=== PATIENT | male | born 1950 | race Caucasian/White ===

== ENCOUNTER 2022-06-19 13:15 | Inpatient (IN) | payer MEDICARE, BC ==
[~2022-06-19] VITALS: Ht 182.9 cm; Wt 83.9 kg
[~2022-06-19 13:15] MED LIST: AMIO400T5 PO; ASPI81TA31 PO; CALC0.253 PO; CALC667C6 PO; CLOP75TA15 PO; EZET10TA15 PO; HYDR-507 PO; LACT10SO69 PO; LISI10TA29 PO; OMEP20CA15 PO; ONDA4TAB5 PO; PRAV10TA40 PO; RENAVITE PO; SEVE800T8 PO; ZOLP10TA2 PO
[2022-06-19] MEDS ORDERED: VANCOMYCIN IV 1,000 MG in IV DEXTROSE 5% 250 ML IV ONE (13:30)
[2022-06-19] MEDS ORDERED: CEFEPIME HCL 1 G in IV DEXTROSE 5% 50 ML IV ONE (13:30)
[2022-06-19 14:02] LABS: HEMATOCRIT 33.9 % (36.7-47.1); MEAN CORPUSCULAR HEMOGLOBIN 27.1 uug (23.8-33.4); MEAN CORPUSCULAR VOLUME 84.3 fL (73.0-96.2); PLATELET COUNT (AUTO) 203 K/uL (152-348)
[2022-06-19] MEDS ORDERED: MEROPENEM 1GM/NS 100ML IVPB **ER PYXIS ONLY IV ONE (14:08)
[2022-06-19] MEDS ORDERED: VANCOMYCIN HCL 500 MG VIAL ONE (14:08)
[2022-06-19] MEDS ORDERED: VANCOMYCIN 1000 MG VIAL ONE (14:09)
[2022-06-19] MEDS ORDERED: CEFEPIME HCL 1 G VIAL ONE (14:13)
[2022-06-19 14:19] LABS: ALANINE AMINOTRANSFERASE 199 U/L (16-63); ALKALINE PHOSPHATASE 160 U/L (50-136); ASPARTATE AMINOTRANSFERASE 128 U/L (15-37); BILIRUBIN,DIRECT 0.6 mg/dL (0.0-0.2); BILIRUBIN,TOTAL 0.8 mg/dL (0.2-1.0); CARBON DIOXIDE 19 mmol/L (21-32); CHLORIDE 94 mmol/L (98-107); CREATININE 2.8 mg/dL (0.6-1.3); GLUCOSE 79 mg/dL (74-106); POTASSIUM 4.5 mmol/L (3.5-5.1); TOTAL PROTEIN, SERUM 5.5 g/dL (6.4-8.2)
[2022-06-19 14:21] LABS: UREA NITROGEN, BLOOD 84 mg/dL (7-18)
[2022-06-19] MEDS ORDERED: IV NORMAL SALINE 1000 ML BAG IV ONE (14:30)
[2022-06-19] MEDS ORDERED: REMEDY ESSENTIAL ZINC PASTE 113 GM TP PRN (15:30)
[2022-06-19] MEDS ORDERED: MAGNESIUM HYDROXIDE 30 ML LIQUID UDC PO PRN (15:30)
[2022-06-19] MEDS ORDERED: ACETAMINOPHEN 325 MG TABLET PO PRN (15:30)
[2022-06-19] MEDS ORDERED: ONDANSETRON 4 MG/2 ML VIAL ONE (16:10)
[2022-06-19 16:13] LABS: *BILIRUBIN,URIN NEGATIVE (NEGATIVE); *BLOOD, URINE NEGATIVE (NEGATIVE); *CLARITY,URINE CLEAR (CLEAR); *COLOR,URINE YELLOW (YELLOW); *KETONES,URINE NEGATIVE (NEGATIVE); LEUKOCYTE ESTERASE ,URINE 2+ (NEGATIVE); NITRITE, URINE NEGATIVE (NEGATIVE); UGLUCOSE NEGATIVE (NEGATIVE)
[2022-06-19] MEDS: ONDANSETRON 4 MG/2 ML VIAL IV PRN (16:14)
[2022-06-19] MEDS ORDERED: ONDANSETRON 4 MG/2 ML VIAL IV ONE (16:15)
[2022-06-19 16:33] LABS: BACTERIA,URINE MANY /HPF (NONE SEEN); RBC,URINE NONE SEEN /HPF (0-3); SQUAMOUS EPITHELIAL CELL,UR FEW /HPF (NONE SEEN); WBC,URINE TNTC /HPF (0-3)
[2022-06-19] MEDS ORDERED: CEFEPIME HCL 1 G in IV DEXTROSE 5% 50 ML IV SCH (22:00)
[2022-06-19] MEDS: DORZOLAMIDE/TIMOLOL OPHT DROP 10 ML BOTTLE EACHEYE SCH (23:15)
[2022-06-20] VITALS (57 sets, daily range): BP systolic 73–148; BP diastolic 23–96
[2022-06-20] MEDS ORDERED: NOREPINEPHRINE BITARTRATE 4 MG/4 ML VIAL IV ONE ×3 (04:12→21:12)
[2022-06-20] MEDS ORDERED: CEFEPIME HCL 1 G VIAL ONE (04:12)
[2022-06-20] MEDS: NOREPINEPHRINE BITARTRATE 8 MG in IV NORMAL SALINE 242 ML IV PRN ×3 (04:58→18:43)
--- NOTE | 2022-06-20 04:59 | NUR ---
Patient B/P has been trending downward, receivedf report of anaerobic blood culture + gram negative rods. Levophed started to support B/P. Blood culture results called to Savanah Gallardo
[2022-06-20] MEDS ORDERED: ONDANSETRON 4 MG/2 ML VIAL ONE (06:56)
[2022-06-20] MEDS: ONDANSETRON 4 MG/2 ML VIAL IV PRN ×2 (06:57→07:34)
[2022-06-20 07:14] LABS: MEAN CORPUSCULAR HEMOGLOBIN 27.7 uug (23.8-33.4); MEAN CORPUSCULAR VOLUME 83.8 fL (73.0-96.2); PLATELET COUNT (AUTO) 180 K/uL (152-348)
[2022-06-20] MEDS ORDERED: ACETAMINOPHEN 325 MG TABLET PO PRN (07:15)
[2022-06-20 07:44] LABS: CARBON DIOXIDE 19 mmol/L (21-32); CHLORIDE 95 mmol/L (98-107); CHOLESTEROL 121 mg/dL (<200); CREATININE 3.1 mg/dL (0.6-1.3); GLUCOSE 87 mg/dL (74-106); HDL CHOLESTEROL 15 mg/dL (40-60); MAGNESIUM 2.1 mg/dL (1.8-2.4); PHOSPHOROUS 4.7 mg/dL (2.5-4.9); POTASSIUM 4.6 mmol/L (3.5-5.1); TRIGLYCERIDES 232 MG/DL (30-150)
[2022-06-20 07:50] LABS: UREA NITROGEN, BLOOD 91 mg/dL (7-18)
[2022-06-20] MEDS ORDERED: EZETIMIBE 10 MG TABLET PO SCH (08:00)
[2022-06-20] MEDS ORDERED: VANCOMYCIN IV 750 MG in IV DEXTROSE 5% 250 ML IV ONE (08:30)
[2022-06-20] MEDS ORDERED: AMIODARONE HCL 200 MG TABLET PO ONE ×2 (09:00)
[2022-06-20] MEDS: DORZOLAMIDE/TIMOLOL OPHT DROP 10 ML BOTTLE EACHEYE SCH ×2 (09:00→21:00)
[2022-06-20] MEDS: predniSONE 5 MG TABLET PO SCH (09:00)
[2022-06-20] MEDS: ASPIRIN 81 MG TAB.CHEW PO SCH (09:00)
[2022-06-20] MEDS ORDERED: APIXABAN 2.5 MG TABLET PO SCH (09:00)
[2022-06-20] MEDS ORDERED: TACROLIMUS ANHYDROUS 0.5 MG CAPSULE PO SCH (09:00)
[2022-06-20] MEDS ORDERED: DOXYCYCLINE HYCLATE 100 MG TABLET PO ONE (09:00)
[2022-06-20] MEDS ORDERED: CALCITRIOL 0.25 MCG CAPSULE PO SCH (09:00)
[2022-06-20] MEDS ORDERED: MYCOPHENOLATE MOFETIL 250 MG CAPSULE PO SCH (09:00)
[2022-06-20] MEDS ORDERED: DOXYCYCLINE HYCLATE 100 MG TABLET PO SCH (09:00)
[2022-06-20] MEDS ORDERED: predniSONE 10 MG TABLET PO SCH (09:00)
[2022-06-20] MEDS ORDERED: DOXYCYCLINE HYCLATE 100 MG TABLET ONE (10:20)
[2022-06-20] MEDS ORDERED: ASPIRIN 81 MG TAB.CHEW ONE (10:20)
[2022-06-20] MEDS ORDERED: APIXABAN 2.5 MG TABLET PO ONE (11:00)
[2022-06-20] MEDS ORDERED: MEROPENEM 1 G in IV NORMAL SALINE 100 ML IV SCH (11:00)
[2022-06-20] MEDS: MEROPENEM 0.5 G in IV NORMAL SALINE 50 ML IV SCH ×2 (11:00→23:00)
--- NOTE | 2022-06-20 11:43 | NUR ---
WOUND CARE CONSULT: PT PRESENTS WITH RT LOWER LEG WOUND, DISTAL TOES DISCOLORED AND WITH DRY ESCHARS, LEFT LATERAL HEEL WOUND, SACRAL SCARRING AND GENERALIZED EDEMA, ALL PRESENT ON ADMISSION. PT IS THIN AND BONY. RECOMMENDATIONS MADE FOR SKIN PROTECTION. DISCUSSED WITH NURSING STAFF. FIRST STEP LOW AIRLOSS MATTRESS IS ON ORDER. DR SHIELDS CALLED FOR DPM CONSULT. IN AGREEMENT WITH PLAN OF CARE. Addendum: 06/20/22 at 1146 by JACKIE VIEIRA RN Amended: Links added.
[2022-06-20] MEDS ORDERED: PIPERACILLIN SODIUM/TAZOBACTAM 3.375 G in IV DEXTROSE 5% 50 ML IV SCH (12:00)
[2022-06-20] MEDS ORDERED: MEROPENEM 500 MG VIAL IV ONE (12:31)
[2022-06-20] MEDS ORDERED: AMIO200T5 PO (13:22)
[2022-06-20] MEDS ORDERED: MYCO180T3 PO (13:25)
[2022-06-20] MEDS ORDERED: HYDR4TAB4 PO (13:25)
[2022-06-20] MEDS ORDERED: APIX5TAB PO (13:25)
[2022-06-20] MEDS ORDERED: TORS10TA17 PO (13:25)
[2022-06-20] MEDS ORDERED: MAGN400T8 PO (13:25)
[2022-06-20] MEDS ORDERED: TACR1TAB PO (13:25)
[2022-06-20] MEDS ORDERED: POTA10CA43 PO (13:25)
[2022-06-20] MEDS ORDERED: DORZ10DR13 EACHEYE (13:29)
[2022-06-20] MEDS ORDERED: PRED-170 PO (13:29)
[2022-06-20] MEDS ORDERED: CEFEPIME HCL 1 G in IV DEXTROSE 5% 50 ML IV SCH (16:00)
[2022-06-20] MEDS ORDERED: MORPHINE SULFATE 2 MG/1 ML DISP.SYRIN IV ONE (17:00)
[2022-06-20] MEDS ORDERED: PANTOPRAZOLE SODIUM 40 MG TABLET.DR PO ONE ×2 (17:00→17:07)
[2022-06-20] MEDS ORDERED: MORPHINE SULFATE 2 MG/1 ML DISP.SYRIN IM PRN (17:00)
[2022-06-20] MEDS ORDERED: MORPHINE SULFATE 2 MG/1 ML DISP.SYRIN ONE (17:07)
--- NOTE | 2022-06-20 18:00 | NUR ---
informed AIDS COUNSELOR Sudhakar that patient has no urine output since 0700 am today. she said she will talk to the renal doctor and call me back.
[2022-06-20] MEDS: IV NS 1000 ML 1,000 ML IV PRN ×2 (18:41→21:17)
--- NOTE | 2022-06-20 19:15 | NUR ---
DARIEN De La Fuente called sophia etienne with no new orders.
[2022-06-20] MEDS ORDERED: ATORVASTATIN 20 MG TABLET PO SCH (21:00)
[2022-06-20] MEDS: APIXABAN 5 MG TABLET PO SCH (21:00)
[2022-06-20] MEDS: TAMSULOSIN HCL 0.4 MG CAP.SR.24H PO SCH (21:00)
--- NOTE | 2022-06-20 21:14 | NUR ---
PT RECEIVED VIA BED. PT ACCOMPANIED BY RN FROM ER IN NO DISTRESS. l EYE REDNESS NOTED. LEVOPHED IN PROGRESS AT .3 MCG/KG/MIN. SBP 64. TITRATE GTT PER PROTOCOL. PT IS GENERALLY WEAK AND C/O OF NAUSEA AND PAIN IN THROAT AND SKIN AND L LOWER EXTREMITY. [place] PICC LINE INTACT AND PAENT AND OOZING DARK RED BOOD. WILL CONTINUE TO MONITOR AND NOTIFY MD. VIDAL AV SHUNT NOTED . MULTIPLE WOUND, AND SKIN CARE NOTED. pTS SPOUSE AND HOME ATTENDED WITH PATIENT WERE GIVEN VISITING HOURS AND ASKED TO WAIT IN WAITING AREA. THOMAS CALL FOR ORDERS.
--- NOTE | 2022-06-20 21:18 | NUR ---
Transfered patient to 2nd floor ICU at this time via hospital bed.
[2022-06-20] MEDS: MYCOPHENOLIC 180 MG PO SCH (23:40)
[2022-06-21] VITALS (66 sets, daily range): BP systolic 55–175; BP diastolic 18–124
[2022-06-21] MEDS: NOREPINEPHRINE BITARTRATE 8 MG in IV NORMAL SALINE 242 ML IV PRN ×3 (00:33→07:45)
[2022-06-21] MEDS ORDERED: MEROPENEM 1 G VIAL IV ONE (01:25)
--- NOTE | 2022-06-21 02:02 | NUR ---
EKG DONE PER MD RESULT CALLED TO [place] FIELD NURSE RAFFAELE ARAIZA IN PROGRESS. BP 115/55. HR 58,SB. NO NEW ORDERS.
[2022-06-21] MEDS: ONDANSETRON 4 MG/2 ML VIAL IV PRN ×3 (02:55→17:15)
[2022-06-21] MEDS ORDERED: NOREPINEPHRINE BITARTRATE 4 MG/4 ML VIAL IV ONE ×2 (03:05→05:30)
--- NOTE | 2022-06-21 04:10 | NUR ---
As per patient- caregiver, patient has not eaten. pa on belle notified. Orders received to start D5NS . Pt dry heaved Zofran administered as ordered.
[2022-06-21] MEDS: IV D5/ 0.9% NACL 1,000 ML IV SCH ×2 (05:00→17:02)
[2022-06-21 05:40] LABS: MEAN CORPUSCULAR HEMOGLOBIN 27.6 uug (23.8-33.4); MEAN CORPUSCULAR VOLUME 84.9 fL (73.0-96.2); PLATELET COUNT (AUTO) 175 K/uL (152-348)
[2022-06-21 05:58] LABS: THYROID STIMULATING HORMONE 17.476 mIU/mL (0.358-3.740)
--- NOTE | 2022-06-21 06:11 | NUR ---
PT has urinary output of 5 ml/ hr. BERLIN Pavon notified. Irrigate catheter now and qs needed. per orde.r.
[2022-06-21 06:52] LABS: ALANINE AMINOTRANSFERASE 136 U/L (16-63); ALKALINE PHOSPHATASE 166 U/L (50-136); ASPARTATE AMINOTRANSFERASE 84 U/L (15-37); BILIRUBIN,TOTAL 0.9 mg/dL (0.2-1.0); CARBON DIOXIDE 14 mmol/L (21-32); CHLORIDE 99 mmol/L (98-107); CREATINE KINASE, TOTAL 29 U/L (39-308); CREATININE 3.5 mg/dL (0.6-1.3); GLUCOSE 126 mg/dL (74-106); MAGNESIUM 1.9 mg/dL (1.8-2.4); PHOSPHOROUS 5.5 mg/dL (2.5-4.9); TOTAL PROTEIN, SERUM 4.7 g/dL (6.4-8.2); VANCOMYCIN,RANDOM 14.3 ug/mL (18.0-26.0)
[2022-06-21] MEDS ORDERED: PANTOPRAZOLE SODIUM 40 MG TABLET.DR PO SCH ×2 (07:00)
[2022-06-21] MEDS ORDERED: ONDANSETRON 4 MG/2 ML VIAL IV ONE (07:00)
[2022-06-21] MEDS ORDERED: BUMETANIDE INJ 6 MG in IV DEXTROSE 5% 36 ML IV ONE (08:00)
[2022-06-21] MEDS: NOREPINEPHRINE BITARTRATE 32 MG in IV NORMAL SALINE 218 ML IV PRN ×2 (08:00→19:30)
[2022-06-21 08:47] LABS: UREA NITROGEN, BLOOD 95 mg/dL (7-18)
[2022-06-21] MEDS: AMIODARONE HCL 200 MG TABLET PO SCH (09:00)
[2022-06-21] MEDS ORDERED: CLOPIDOGREL 75 MG TABLET PO SCH (09:00)
[2022-06-21] MEDS ORDERED: PHENYLEPHRINE IV 50 MG in IV NORMAL SALINE 245 ML IV PRN (09:15)
[2022-06-21] MEDS ORDERED: VANCOMYCIN IV 500 MG in IV DEXTROSE 5% 100 ML IV ONE (09:15)
[2022-06-21] MEDS: ENVARSUS 1 MG PO SCH (09:29)
[2022-06-21] MEDS: MYCOPHENOLIC 180 MG PO SCH ×2 (09:30→20:56)
[2022-06-21] MEDS: predniSONE 5 MG TABLET PO SCH (09:30)
[2022-06-21] MEDS: ASPIRIN 81 MG TAB.CHEW PO SCH (09:30)
[2022-06-21] MEDS: APIXABAN 5 MG TABLET PO SCH (09:31)
[2022-06-21] MEDS: PANTOPRAZOLE SODIUM 40 MG VIAL IV SCH (10:00)
[2022-06-21 10:46] LABS: ABG BASE EXCESS -13.6 mmol/L; ABG HCO3 10.9 mmol/L; ABG PCO2 22.7 mmHg (35.0-45.0); ABG PH 7.298 (7.350-7.450); ABG PO2 108.8 mmHg (75.0-100.0); ABG SITE RIGHT BRACHIAL; ABG TOTAL HEMOGLOBIN 12.8 G/dL (13.5-18.0); COHb 0.6 % (0.5-1.5); O2Hb 97.2 % (94.0-97.0); VENT MODE Nasal Cannula
--- NOTE | 2022-06-21 11:00 | NUR ---
BG COMPLETED BY RT. Result called to MD Ida De La Fuente. hco3 is 10.9, ph 7.29,,poa 108.8. Awaits orderes.
[2022-06-21] MEDS ORDERED: SODIUM BICARBONATE 8.4% 50 MEQ/50 ML DISP.SYRIN IV ONE (11:45)
[2022-06-21] MEDS: PHENYLEPHRINE IV 100 MG in IV NORMAL SALINE 240 ML IV PRN (13:15)
[2022-06-21] MEDS: MEROPENEM 0.5 G in IV NORMAL SALINE 50 ML IV SCH ×2 (13:33→22:57)
[2022-06-21] MEDS: DORZOLAMIDE/TIMOLOL OPHT DROP 10 ML BOTTLE EACHEYE SCH ×2 (13:35→20:57)
--- NOTE | 2022-06-21 14:35 | NUR ---
Sodium Bicarb administered as orderd. SBP 121. O2SAT 96. Patient's urine output at 5ML/HR. Bumex completed.
--- NOTE | 2022-06-21 17:41 | NUR ---
pt status remains unchanged. Ecchocardiogram done and patient tolerated positioning poorly. BP dropped to t0. Titrated Phenylephrine to 3 mcg/kg/min. Levophed at 3 mcg/kg/min. Exremities cool to touch. Pt refused warmer. Pt states that he does not feel cold. Temp 97.4.
[2022-06-21 17:42] LABS: *BILIRUBIN,URIN 1+ (NEGATIVE); *BLOOD, URINE 3+ (NEGATIVE); *COLOR,URINE YELLOW (YELLOW); *KETONES,URINE TRACE (NEGATIVE); *UROBILINOGEN,URINE 0.2 E.U./dl (NORMAL); LEUKOCYTE ESTERASE ,URINE 1+ (NEGATIVE); NITRITE, URINE NEGATIVE (NEGATIVE); PH,URINE 5.5 (5.0-8.0); UGLUCOSE NEGATIVE (NEGATIVE)
[2022-06-21 17:45] LABS: *CREATININE,URINE 63.6 mg/dL (30-125); *URINE TOTAL PROTEIN RANDOM 209.4 mg/dL (<150/24HR)
[2022-06-21] MEDS: MORPHINE SULFATE 2 MG/1 ML DISP.SYRIN IV PRN ×2 (18:00→22:54)
--- NOTE | 2022-06-21 19:00 | NUR ---
RECEIVED REPORT FROM MITUL ACOSTA, NO ACUTE DISTRESS NOTED.
[2022-06-21] MEDS: TAMSULOSIN HCL 0.4 MG CAP.SR.24H PO SCH (21:02)
[2022-06-22] VITALS (48 sets, daily range): BP systolic 76–144; BP diastolic 24–77
--- NOTE | 2022-06-22 | NUR ---
Change of shift report given. Pt slept all day. Po meds were held due to drowsiness. BERLIN De La Fuente made aware. Addendum: 06/22/22 at 0004 by [facility] RN15 RN [employer] error. Thaxton disregard note.
[2022-06-22] MEDS: APIXABAN 5 MG TABLET PO SCH (00:06)
[2022-06-22 01:12] LABS: BACTERIA,URINE FEW /HPF (NONE SEEN); SQUAMOUS EPITHELIAL CELL,UR MODERATE /HPF (NONE SEEN)
[2022-06-22] MEDS: PHENYLEPHRINE IV 100 MG in IV NORMAL SALINE 240 ML IV PRN ×3 (02:29→22:36)
[2022-06-22] MEDS: IV D5/ 0.9% NACL 1,000 ML IV SCH ×2 (03:48→14:06)
[2022-06-22 05:32] LABS: MEAN CORPUSCULAR HEMOGLOBIN 27.5 uug (23.8-33.4); MEAN CORPUSCULAR VOLUME 86.4 fL (73.0-96.2); PLATELET COUNT (AUTO) 128 K/uL (152-348)
[2022-06-22 06:06] LABS: ALANINE AMINOTRANSFERASE 125 U/L (16-63); ALKALINE PHOSPHATASE 174 U/L (50-136); ASPARTATE AMINOTRANSFERASE 99 U/L (15-37); BILIRUBIN,TOTAL 0.9 mg/dL (0.2-1.0); CHLORIDE 100 mmol/L (98-107); CREATINE KINASE, TOTAL 29 U/L (39-308); CREATININE 4.1 mg/dL (0.6-1.3); GLUCOSE 153 mg/dL (74-106); MAGNESIUM 1.9 mg/dL (1.8-2.4); PHOSPHOROUS 6.8 mg/dL (2.5-4.9); TOTAL PROTEIN, SERUM 4.6 g/dL (6.4-8.2); VANCOMYCIN,RANDOM 15.8 ug/mL (18.0-26.0)
[2022-06-22 06:12] LABS: CARBON DIOXIDE 10 mmol/L (21-32); UREA NITROGEN, BLOOD 91 mg/dL (7-18)
[2022-06-22] MEDS: LEVOTHYROXINE SODIUM 50 MCG TABLET PO SCH (06:47)
[2022-06-22] MEDS: PANTOPRAZOLE SODIUM 40 MG VIAL IV SCH (09:00)
[2022-06-22] MEDS ORDERED: APIXABAN 5 MG TABLET PO SCH (09:00)
[2022-06-22] MEDS: AMIODARONE HCL 200 MG TABLET PO SCH (09:00)
[2022-06-22] MEDS: ENVARSUS 1 MG PO SCH (10:22)
[2022-06-22] MEDS: DORZOLAMIDE/TIMOLOL OPHT DROP 10 ML BOTTLE EACHEYE SCH ×2 (10:23→21:00)
[2022-06-22] MEDS: predniSONE 5 MG TABLET PO SCH (10:23)
[2022-06-22] MEDS: MYCOPHENOLIC 180 MG PO SCH ×2 (10:23→22:50)
[2022-06-22] MEDS: ASPIRIN 81 MG TAB.CHEW PO SCH (10:31)
[2022-06-22] MEDS: APIXABAN 2.5 MG TABLET PO SCH ×2 (10:33→21:00)
[2022-06-22] MEDS: MORPHINE SULFATE 2 MG/1 ML DISP.SYRIN IV PRN ×2 (10:56→22:24)
[2022-06-22] MEDS: MEROPENEM 0.5 G in IV NORMAL SALINE 50 ML IV SCH ×2 (11:00→23:25)
[2022-06-22] MEDS ORDERED: SODIUM BICARBONATE 8.4% 50 MEQ/50 ML DISP.SYRIN IV ONE ×2 (11:45→17:45)
[2022-06-22] MEDS: NEPRO (VANILLA) 237 ML CAN PO SCH (12:00)
[2022-06-22] MEDS ORDERED: LIDOCAINE HCL 1% 20 ML VIAL IJ STA (12:13)
[2022-06-22] MEDS ORDERED: VANCOMYCIN IV 500 MG in IV DEXTROSE 5% 100 ML IV ONE (13:00)
[2022-06-22] MEDS ORDERED: FUROSEMIDE 40 MG/4 ML VIAL IV ONE (13:30)
[2022-06-22] MEDS ORDERED: VANCOMYCIN IV 500 MG in IV DEXTROSE 5% 100 ML IV PRN (13:45)
[2022-06-22] MEDS: ARGININE/GLUTAMINE/CALCIUM BMB 1 EACH POWD.PACK PO SCH (17:00)
[2022-06-22 17:14] LABS: ABG BASE EXCESS -20.9 mmol/L; ABG HCO3 7.3 mmol/L; ABG PCO2 24.7 mmHg (35.0-45.0); ABG PH 7.091 (7.350-7.450); ABG PO2 97.1 mmHg (75.0-100.0); ABG SITE A-Line; ABG TOTAL HEMOGLOBIN 11.7 G/dL (13.5-18.0); COHb 0.3 % (0.5-1.5); MetHb 0.1 % (0.0-1.5); O2Hb 95.8 % (94.0-97.0)
[2022-06-22] MEDS ORDERED: SODIUM BICARBONATE 8.4% 50 MEQ/50 ML DISP.SYRIN IV SCH (18:00)
[2022-06-22] MEDS ORDERED: ALBUMIN HUMAN 25% 50 ML IV PRN (19:00)
--- NOTE | 2022-06-22 20:01 | NUR ---
Report rec'd @ 0700 pt stable, AAOx4 Levo @ 0.6mcg, Rehan @ 3mcg (max) noted L eye (RED) - pt stated he was rubbing it a few days ago and something got in his eye, pt denies pain left arm (RED) - normal temp - non pitting edema - Fistula present right arm (discolored, black, dark red) - weeping - [place] -PICC line noted BLE, +2 - +3 pitting edema, pulses still palpable sacrum intact
[2022-06-22] MEDS ORDERED: HYDROCODONE/APAP 5-325MG TABLET PO PRN (20:45)
[2022-06-22] MEDS ORDERED: PHENYLEPHRINE 10 MG/1 ML VIAL ONE (21:51)
[2022-06-22] MEDS: SODIUM BICARBONATE 8.4% 150 MEQ in IV D5W 1000ML 1,000 ML IV PRN (22:22)
[2022-06-22] MEDS: TAMSULOSIN HCL 0.4 MG CAP.SR.24H PO SCH (22:48)
[2022-06-22] MEDS: NOREPINEPHRINE BITARTRATE 32 MG in IV NORMAL SALINE 218 ML IV PRN (22:52)
[2022-06-23] VITALS (30 sets, daily range): BP systolic 66–131; BP diastolic 28–49
[2022-06-23 01:44] LABS: *CLARITY,URINE 78 (CLEAR)
[2022-06-23] MEDS: VASOPRESSIN 20 UNIT in IV NORMAL SALINE 40 ML IV PRN ×2 (01:45→03:21)
[2022-06-23] MEDS ORDERED: NOREPINEPHRINE BITARTRATE 4 MG/4 ML VIAL IV ONE ×2 (02:14→02:20)
[2022-06-23] MEDS ORDERED: VASOPRESSIN 20 UNIT/ML VIAL ONE (03:10)
[2022-06-23 04:56] LABS: CARBON DIOXIDE 12 mmol/L (21-32); CHLORIDE 100 mmol/L (98-107); CREATININE 3.5 mg/dL (0.6-1.3); GLUCOSE 87 mg/dL (74-106); MAGNESIUM 1.8 mg/dL (1.8-2.4); PHOSPHOROUS 5.6 mg/dL (2.5-4.9); POTASSIUM 4.2 mmol/L (3.5-5.1); UREA NITROGEN, BLOOD 72 mg/dL (7-18)
[2022-06-23] MEDS: LEVOTHYROXINE SODIUM 50 MCG TABLET PO SCH (05:56)
[2022-06-23 05:59] LABS: ABG BASE EXCESS -14.2 mmol/L; ABG PCO2 24.3 mmHg (35.0-45.0); ABG PH 7.274 (7.350-7.450); ABG PO2 92.4 mmHg (75.0-100.0); ABG SITE A-Line; COHb 0.3 % (0.5-1.5); MetHb 0.1 % (0.0-1.5); O2Hb 96.2 % (94.0-97.0); VENT MODE Nasal Cannula
[2022-06-23] MEDS: PHENYLEPHRINE IV 100 MG in IV NORMAL SALINE 240 ML IV PRN (07:12)
[2022-06-23] MEDS ORDERED: HYDROCODONE/APAP 5-325MG TABLET PO PRN (07:30)
[2022-06-23] MEDS: SODIUM BICARBONATE 8.4% 150 MEQ in IV D5W 1000ML 1,000 ML IV PRN (08:49)
[2022-06-23 08:52] LABS: HEMATOCRIT 29.1 % (36.7-47.1); MEAN CORPUSCULAR HEMOGLOBIN 26.9 uug (23.8-33.4); MEAN CORPUSCULAR VOLUME 86.2 fL (73.0-96.2)
[2022-06-23] MEDS: DORZOLAMIDE/TIMOLOL OPHT DROP 10 ML BOTTLE EACHEYE SCH (08:54)
[2022-06-23] MEDS: ASPIRIN 81 MG TAB.CHEW PO SCH (08:54)
[2022-06-23] MEDS: ENVARSUS 1 MG PO SCH (08:54)
[2022-06-23] MEDS: predniSONE 5 MG TABLET PO SCH (08:55)
[2022-06-23] MEDS: MYCOPHENOLIC 180 MG PO SCH (08:55)
[2022-06-23] MEDS: PANTOPRAZOLE SODIUM 40 MG VIAL IV SCH (08:55)
[2022-06-23] MEDS: ARGININE/GLUTAMINE/CALCIUM BMB 1 EACH POWD.PACK PO SCH (09:00)
[2022-06-23] MEDS: NEPRO (VANILLA) 237 ML CAN PO SCH (09:00)
[2022-06-23] MEDS: AMIODARONE HCL 200 MG TABLET PO SCH (09:00)
[2022-06-23] MEDS: NOREPINEPHRINE BITARTRATE 32 MG in IV NORMAL SALINE 218 ML IV PRN (09:01)
[2022-06-23] MEDS ORDERED: IV NORMAL SALINE 500 ML IV ONE (11:00)
[2022-06-23] MEDS ORDERED: SODIUM BICARBONATE 8.4% 100 MEQ in IV D5 1/2 NS 1000 ML 1,000 ML IV PRN (11:00)
[2022-06-23] MEDS ORDERED: IV D5/ 0.9% NACL 1,000 ML IV PRN (11:02)
[2022-06-23] MEDS: MEROPENEM 0.5 G in IV NORMAL SALINE 50 ML IV SCH (11:08)
[2022-06-23] MEDS ORDERED: SODIUM BICARBONATE 8.4% 50 MEQ/50 ML DISP.SYRIN IV ONE (11:15)
[2022-06-23] MEDS: APIXABAN 2.5 MG TABLET PO SCH (11:30)
[2022-06-23] MEDS: FENTANYL CITRATE 100 MCG/2 ML AMPUL IV PRN ×2 (12:16→14:01)
[2022-06-23 12:37] LABS: PLATELET COUNT (AUTO) 45 K/uL (152-348)
[2022-06-23 13:16] LABS: BAND % (MANUAL) 10 % (0-10); LYMPHOCYTES % (MANUAL) 11 % (20-40); MONOCYTES % (MANUAL) 4 % (2-10); MYELOCYTES % 1 % (0-0); NEUTROPHILS % (MANUAL) 74 % (42-75)
[2022-06-23] MEDS ORDERED: LORAZEPAM 2 MG/1 ML VIAL IV PRN (14:00)
[2022-06-23] MEDS ORDERED: MORPHINE SULFATE PF IV DRIP 100 MG in IV DEXTROSE 5% 96 ML IV PRN (14:00)
[2022-06-24 08:06] LABS: A/G RATIO 0.7 (0.7-1.7); ALBUMIN 1.8 g/dL (2.9-4.4); ALPHA-1-GLOBULIN 0.3 g/dL (0.0-0.4); ALPHA-2-GLOBULIN 0.7 g/dL (0.4-1.0); BETA GLOBULIN 0.5 g/dL (0.7-1.3); GAMMA GLOBULIN 1.1 g/dL (0.4-1.8); GLOBULIN, TOTAL 2.5 g/dL (2.2-3.9); M-SPIKE Not Observed g/dL (Not Observed)
[2022-06-24 11:06] LABS: A/G RATIO 0.7 (0.7-1.7); ALBUMIN 1.8 g/dL (2.9-4.4); ALPHA-1-GLOBULIN 0.2 g/dL (0.0-0.4); ALPHA-2-GLOBULIN 0.7 g/dL (0.4-1.0); BETA GLOBULIN 0.5 g/dL (0.7-1.3); GAMMA GLOBULIN 1.1 g/dL (0.4-1.8); GLOBULIN, TOTAL 2.5 g/dL (2.2-3.9); M-SPIKE Not Observed g/dL (Not Observed)
[2022-06-25 02:06] LABS: HEPATITIS B SURFACE AG Negative (Negative)
[2022-06-25 02:06] LABS: HEPATITIS B SURFACE AG Negative (Negative)
== END 2022-06-23 13:30 | disposition hospice, inpatient (51) | DRG 698 ==
LOC: ER 13:16 → TRANSITION 15:30 → CCU 06-20 20:40
PROVIDERS: ADMIT Nurse Practitioner Acute Care; ATTEND Nurse Practitioner Acute Care
PROC: 02HV33Z Insertion of Infusion Device into Superior Vena Cava, Percutaneous Approach (ICD-10-PCS; principal; 2022-06-19)
PROC: B548ZZA Ultrasonography of Superior Vena Cava, Guidance (ICD-10-PCS; 2022-06-19)
PROC: 03H633Z Insertion of Infusion Device into Left Axillary Artery, Percutaneous Approach (ICD-10-PCS; 2022-06-22)
PROC: 05HM33Z Insertion of Infusion Device into Right Internal Jugular Vein, Percutaneous Approach (ICD-10-PCS; 2022-06-22)
PROC: B543ZZA Ultrasonography of Right Jugular Veins, Guidance (ICD-10-PCS; 2022-06-22)
PROC: 5A1D70Z Performance of Urinary Filtration, Intermittent, Less than 6 Hours Per Day (ICD-10-PCS; 2022-06-22)
DX: T86.12 Kidney transplant failure (principal); A41.9 Sepsis, unspecified organism; G92.8 Other toxic encephalopathy; N17.0 Acute kidney failure with tubular necrosis; R65.21 Severe sepsis with septic shock; N39.0 Urinary tract infection, site not specified; E87.1 Hypo-osmolality and hyponatremia; E87.20 Acidosis, unspecified; D68.69 Other thrombophilia; E46 Unspecified protein-calorie malnutrition; D64.9 Anemia, unspecified; E88.09 Other disorders of plasma-protein metabolism, not elsewhere classified; H40.9 Unspecified glaucoma; I48.0 Paroxysmal atrial fibrillation; Z66 Do not resuscitate; Z88.0 Allergy status to penicillin; Z87.891 Personal history of nicotine dependence; Z95.5 Presence of coronary angioplasty implant and graft; E78.5 Hyperlipidemia, unspecified; I25.10 Atherosclerotic heart disease of native coronary artery without angina pectoris; Z79.01 Long term (current) use of anticoagulants; R62.7 Adult failure to thrive; I25.2 Old myocardial infarction; E86.1 Hypovolemia; R74.01 Elevation of levels of liver transaminase levels; Z74.09 Other reduced mobility; S81.801A Unspecified open wound, right lower leg, initial encounter; X58.XXXA Exposure to other specified factors, initial encounter; Y93.9 Activity, unspecified; Y92.009 Unspecified place in unspecified non-institutional (private) residence as the place of occurrence of the external cause; N18.9 Chronic kidney disease, unspecified; I73.9 Peripheral vascular disease, unspecified; Y83.8 Other surgical procedures as the cause of abnormal reaction of the patient, or of later complication, without mention of misadventure at the time of the procedure; Y83.0 Surgical operation with transplant of whole organ as the cause of abnormal reaction of the patient, or of later complication, without mention of misadventure at the time of the procedure; Z79.60 Long term (current) use of unspecified immunomodulators and immunosuppressants; Z79.82 Long term (current) use of aspirin; Z86.79 Personal history of other diseases of the circulatory system; I35.0 Nonrheumatic aortic (valve) stenosis; N40.1 Benign prostatic hyperplasia with lower urinary tract symptoms; K76.1 Chronic passive congestion of liver; M89.8X9 Other specified disorders of bone, unspecified site; Z74.01 Bed confinement status
CPT/HCPCS: 36415; 36600; 70030-TC; 71045; 76770; 82533; 83605; 83735; 83935; 83970; 84100; 84155; 84156; 84165; 84300; 84443; 84484; 84550; 85025; 85730; 86706; 87040; 87340; 87400; 90937; 93005; 93307; A4663; A6209; C9113; G0378; J0692; J2185; J2270; J2274; J2370; J2405; J3010; J3370; J3490; J7040; J7042; J7050; J7070; J7507; J7512; J7517; P9047; U0003

== ENCOUNTER 2022-06-23 14:25 | Inpatient (IN) | payer OTHER ==
[~2022-06-23 14:25] MED LIST changes: +AMIO200T5 PO; -AMIO400T5 PO; +APIX5TAB PO; -CALC0.253 PO; -CALC667C6 PO; -CLOP75TA15 PO; +DORZ10DR13 EACHEYE; -HYDR-507 PO; +HYDR4TAB4 PO; -LACT10SO69 PO; -LISI10TA29 PO; +MAGN400T8 PO; +MYCO180T3 PO; -OMEP20CA15 PO; -ONDA4TAB5 PO; +POTA10CA43 PO; -PRAV10TA40 PO; +PRED-170 PO; -RENAVITE PO; -SEVE800T8 PO; +TACR1TAB PO; +TORS10TA17 PO; -ZOLP10TA2 PO
[2022-06-23] MEDS ORDERED: LORAZEPAM 2 MG/1 ML VIAL ONE (14:52)
[2022-06-23] MEDS: LORAZEPAM 2 MG/1 ML VIAL IV PRN ×2 (14:57→15:00)
[2022-06-23] MEDS ORDERED: MORPHINE SULFATE PF IV DRIP 100 MG in IV DEXTROSE 5% 96 ML IV PRN (15:00)
--- NOTE | 2022-06-23 17:39 | NUR ---
AT 1512 PT ..PT AND KIDS WERE AT HIS BEDSIDE..PT SISTER WAS [place] AT HIS BEDSIDE PT BODY WAS TAKEN TO THE [place] AT 1730
== END 2022-06-23 17:30 | DRG 951 ==
LOC: CCU 14:25
PROVIDERS: ADMIT Internal Medicine; ATTEND Internal Medicine
DX: Z51.5 Encounter for palliative care (principal); A41.9 Sepsis, unspecified organism; G92.8 Other toxic encephalopathy; N17.0 Acute kidney failure with tubular necrosis; R65.21 Severe sepsis with septic shock; T86.12 Kidney transplant failure; N39.0 Urinary tract infection, site not specified; E87.1 Hypo-osmolality and hyponatremia; E87.20 Acidosis, unspecified; D68.69 Other thrombophilia; E46 Unspecified protein-calorie malnutrition; D64.9 Anemia, unspecified; E88.09 Other disorders of plasma-protein metabolism, not elsewhere classified; H40.9 Unspecified glaucoma; I48.0 Paroxysmal atrial fibrillation; Z66 Do not resuscitate; Z88.0 Allergy status to penicillin; Z87.891 Personal history of nicotine dependence; Z95.5 Presence of coronary angioplasty implant and graft; E78.5 Hyperlipidemia, unspecified; I25.10 Atherosclerotic heart disease of native coronary artery without angina pectoris; Z79.01 Long term (current) use of anticoagulants; R62.7 Adult failure to thrive; I25.2 Old myocardial infarction; E86.1 Hypovolemia; R74.01 Elevation of levels of liver transaminase levels; Z74.09 Other reduced mobility; S81.801A Unspecified open wound, right lower leg, initial encounter; X58.XXXA Exposure to other specified factors, initial encounter; Y93.9 Activity, unspecified; N18.9 Chronic kidney disease, unspecified; I73.9 Peripheral vascular disease, unspecified; Y83.0 Surgical operation with transplant of whole organ as the cause of abnormal reaction of the patient, or of later complication, without mention of misadventure at the time of the procedure; Z79.60 Long term (current) use of unspecified immunomodulators and immunosuppressants; Z79.82 Long term (current) use of aspirin; Z86.79 Personal history of other diseases of the circulatory system; I35.0 Nonrheumatic aortic (valve) stenosis; N40.1 Benign prostatic hyperplasia with lower urinary tract symptoms; K76.1 Chronic passive congestion of liver; M89.8X9 Other specified disorders of bone, unspecified site; Z74.01 Bed confinement status; Y92.009 Unspecified place in unspecified non-institutional (private) residence as the place of occurrence of the external cause
CPT/HCPCS: G0378; J2060; J2274